=== PATIENT | male | born 1970 | race Caucasian/White ===

== ENCOUNTER 2021-01-02 05:37 | Emergency (ER) | payer OTHER ==
[~2021-01-02] VITALS: Ht 193 cm; Wt 93.0 kg
[~2021-01-02 05:37] MED LIST: OXYACE5T PO; PROM25 PO
[2021-01-02] MEDS ORDERED: IBU600 MG PO (06:05)
== END 2021-01-02 06:17 | disposition home or self-care (01) ==
LOC: ER 05:37
DX: M25.561 Pain in right knee (principal)
CPT/HCPCS: 73564; 99283-25; A9270

== ENCOUNTER → 2021-06-27 | Outpatient (CLI) | payer OTHER ==
[~2021-06-27] MED LIST changes: +IBU600 MG PO
[2021-06-29 10:10] LABS: CHLAMYDIA BY NAA Negative (Negative); GONOCOCCUS BY NAA Negative (Negative); TRICH VAG BY NAA Negative (Negative)
== END ==
LOC: LAB 11:10 → LAB SHORT 11:10
PROVIDERS: Registered Nurse Community Health
DX: Z11.3 Encounter for screening for infections with a predominantly sexual mode of transmission (principal); Z20.2 Contact with and (suspected) exposure to infections with a predominantly sexual mode of transmission
CPT/HCPCS: 87491; 87591; 87661

== ENCOUNTER → 2021-06-27 | Outpatient (CLI) | payer OTHER ==
[2021-06-29 02:07] LABS: HBSAG SCREEN Negative (Negative); HCV ANTIBODY <0.1 (0.0-0.9); HIV SCREEN 4TH GENERATION WRFX Non Reactive (Non Reactive)
== END ==
LOC: LAB 11:15 → LAB SHORT 11:15
PROVIDERS: Registered Nurse Community Health
DX: Z11.3 Encounter for screening for infections with a predominantly sexual mode of transmission (principal); Z20.2 Contact with and (suspected) exposure to infections with a predominantly sexual mode of transmission
CPT/HCPCS: 86592; 86803; 87340; 87389

== ENCOUNTER → 2022-02-17 | Outpatient (CLI) | payer OTHER | END | disposition home or self-care (01) | LOC: LAB 18:08 → LAB SHORT 18:08 | DX: R36.9 Urethral discharge, unspecified (principal) | CPT/HCPCS: 87086 ==

== ENCOUNTER 2022-02-26 13:40 | Emergency (ER) | payer OTHER ==
[~2022-02-26] VITALS: Ht 190.5 cm; Wt 86.2 kg
[2022-02-26] MEDS ORDERED: Avidoxy100 MG PO (13:49)
[2022-02-26 14:19] LABS: BASOPHILS PERCENT AUTO 1 % (0-2); EOSINOPHILS ABSOLUTE AUTO 0.09 K/mm3 (0.00-0.68); EOSINOPHILS PERCENT AUTO 1 % (0-6); Hematocrit 42.8 % (37.0-53.0); Hemoglobin 14.2 g/dL (13.5-17.5); IMMATURE GRAN ABSOLUTE AUTO 0.04 K/mm3 (0.00-0.10); IMMATURE GRAN PERCENT AUTO 1 % (0-1); LYMPHOCYTES ABSOLUTE AUTO 1.62 K/mm3 (0.84-5.20); LYMPHOCYTES PERCENT AUTO 19 % (21-46); MONOCYTES ABSOLUTE AUTO 0.64 K/mm3 (0.16-1.47); MONOCYTES PERCENT AUTO 7 % (4-13); Mean Corpuscular HGB 29.8 pg (26.0-34.0); Mean Corpuscular HGB Conc 33.2 g/dL (31.5-36.5); Mean Corpuscular Volume 90 fL (80-100); Mean Platelet Volume 11.7 fL (9.1-12.4); NEUTROPHILS ABSOLUTE AUTO 6.27 K/mm3 (1.96-9.15); NEUTROPHILS PERCENT AUTO 72 % (41-73); Platelet Count 207 K/mm3 (150-400); RDW Coefficient Variation 13.1 % (11.7-14.2); RDW Standard Deviation 43.4 fL (35.1-46.3); Red Blood Cell Count 4.76 M/mm3 (4.30-5.90); White Blood Cell Count 8.76 K/mm3 (4.00-11.30)
[2022-02-26 14:39] LABS: Albumin/Globulin Ratio 1.2 (0.8-1.8); Bilirubin, Total 0.5 mg/dL (0.1-1.0); Bun/Creatinine Ratio 15.9 (12.0-20.0); Calcium, Blood 8.9 mg/dL (8.5-10.1); Creatinine, Blood 0.82 mg/dL (0.60-1.20); Globulin, Blood 3.2 g/dL (2.2-4.0); Potassium, Blood 4.2 mmol/L (3.5-5.5); Total Protein, Blood 7.2 g/dL (6.4-8.2)
[2022-02-26 14:57] LABS: Source, Urine Clean Catch
[2022-02-26 15:05] LABS: Appearance, Urine Clear (Clear); Bilirubin, Urine Neg (Neg); Blood, Urine Neg (Neg); Glucose Qualitative, Urine Neg (Neg); Ketones, Urine Neg (Neg); Leukocyte Esterase, Urine Neg (Neg); Nitrite, Urine Neg (Neg); Protein, Urine Neg (Neg); Urobilinogen, Urine NORM (Normal)
[2022-02-26 15:11] LABS: Color, Urine Pale Yellow (P-Yellow)
== END 2022-02-26 15:44 | disposition home or self-care (01) ==
LOC: ER 13:40
PROVIDERS: Physician Assistant
DX: R10.9 Unspecified abdominal pain (principal); M54.9 Dorsalgia, unspecified; N39.0 Urinary tract infection, site not specified; Z88.8 Allergy status to other drugs, medicaments and biological substances; Z87.891 Personal history of nicotine dependence; Z79.899 Other long term (current) drug therapy
CPT/HCPCS: 36415; 74176; 80053; 81003; 83690; 85025; J2405; J7030

== ENCOUNTER → 2022-03-15 | Outpatient (CLI) | payer OTHER ==
[~2022-03-15] MED LIST changes: +Avidoxy100 MG PO
[2022-03-15 14:51] LABS: CHOL/HDL RATIO 3.2; Cholesterol 143 mg/dL (50-200); HDL Cholesterol 45 mg/dL (>39); Low Density Lipoprotein Chol 88 mg/dL (0-110); Triglycerides 51 mg/dL (30-160); Very Low Density Lipoprot Chol 10 mg/dL (6-32)
== END | disposition home or self-care (01) ==
LOC: LAB 08:45 → LAB SHORT 08:45
PROVIDERS: Nurse Practitioner
DX: Z12.5 Encounter for screening for malignant neoplasm of prostate (principal); Z13.6 Encounter for screening for cardiovascular disorders
CPT/HCPCS: 80061; G0103

== ENCOUNTER 2024-04-30 07:48 | Day surgery (SDC) | payer OTHER ==
[~2024-04-30] VITALS: Ht 190.5 cm; Wt 89.0 kg
[2024-04-30] VITALS (7 sets, daily range): BP systolic 128–135; BP diastolic 79–99
[~2024-04-30 07:48] MED LIST changes: +LOSA25 PO; +METO25ER PO; +NITR.4SL SL; +Prednisone10 MG PO
[2024-04-30] MEDS ORDERED: NS 250 ML IV ONE (08:01)
[2024-04-30] MEDS ORDERED: Verapamil HCL 2.5 MG/ML 2ML Injection ONE (08:01)
[2024-04-30] MEDS ORDERED: Heparin Sodium 1000 Units/ML 10ML MDV ONE (08:02)
[2024-04-30] MEDS ORDERED: Nitroglycerin 2 MG/20 ML BTL ONE (08:02)
[2024-04-30] MEDS ORDERED: NS 1,000 ML IV ONE ×2 (08:02→08:47)
[2024-04-30] MEDS ORDERED: Crestor40 MG PO (08:06)
[2024-04-30] MEDS ORDERED: Aspir 8181 MG PO (08:06)
[2024-04-30] MEDS ORDERED: Midazolam HCl 1MG / ML 2ML Vial ONE (08:47)
[2024-04-30] MEDS ORDERED: FentaNYL Citrate 50 MCG/ML 2 ML Injection ONE (08:47)
--- NOTE | 2024-04-30 09:30 | NUR ---
Pt back from lab at this time in recliner, TR band to right radial site. 10cc of air in band per report with no oozing or hematoma. pt. vss upon arrival to unit. food tray provided and refrshments offered. call light in reach.
--- NOTE | 2024-04-30 10:00 | NUR ---
Radial site remains unchanged from previous assessments additional food provided per pt. request. vss remain stable.
[2024-04-30] MEDS ORDERED: Imdur30 MG PO (10:10)
--- NOTE | 2024-04-30 10:57 | NUR ---
tr band deflated per protocol. no oozing or swelling from site. pt resting comfortably in recliner. vss remain stable. discharge instructions reviewed in detail. no further questions. pt. prescription called to [facility].
--- NOTE | 2024-04-30 11:10 | NUR ---
PT ABLE TO GET SELF DRESSED WITH OUT DIFFICULTY. IV REMOVED, CATHETER INTACT. PT. TR BAND REMOVED, DIME SIZED BRUISE AT ACCESS SITE, NO OOZING. PT. VSS REMAIN STABLE. BANDAGE PLACED OVER SITE, ARM BOARD IN PLACE FOR DISCHARGE. PT ROOMMATE TO DRIVE PT HOME. ALL BELOGNINGS WITH PT UPON DISCHARGE TAKEN VIA WHEELCHAIR TO EXIT.
== END 2024-04-30 11:30 | disposition home or self-care (01) ==
LOC: MHTC 07:48
DX: R07.89 Other chest pain (principal); R94.39 Abnormal result of other cardiovascular function study; Z82.49 Family history of ischemic heart disease and other diseases of the circulatory system; K51.919 Ulcerative colitis, unspecified with unspecified complications; Z87.891 Personal history of nicotine dependence; Z79.899 Other long term (current) drug therapy
CPT/HCPCS: 76937; 93454; 99152; C1769; C1894; J1644; J2250; J3010; J7030; J7050; Q9967

== ENCOUNTER → 2025-01-08 | Outpatient (CLI) | payer OTHER ==
[~2025-01-08] MED LIST changes: +Aspir 8181 MG PO; +Crestor40 MG PO; +Imdur30 MG PO
[2025-01-12 06:02] LABS: CALPROTECTIN,FECAL 126 ug/g (<=49)
== END ==
LOC: LAB SHORT 14:48 → LAB 14:48 → LAB FUT 01-06 08:20
PROVIDERS: Physician Assistant
DX: K51.011 Ulcerative (chronic) pancolitis with rectal bleeding (principal)
CPT/HCPCS: 83993

== ENCOUNTER → 2025-06-18 | Outpatient (CLI) | payer OTHER ==
[2025-06-18 15:09] LABS: C DIFFICILE DNA NEGATIVE (Negative)
[2025-06-22 16:07] LABS: CALPROTECTIN,FECAL 85 ug/g (<=49)
== END ==
LOC: LAB 12:19 → LAB SHORT 12:19 → LAB FUT 06-15 10:05
PROVIDERS: Student in an Organized Health Care Education/Training Program
DX: K51.011 Ulcerative (chronic) pancolitis with rectal bleeding (principal); R19.7 Diarrhea, unspecified
CPT/HCPCS: 83993; 87015; 87045; 87046; 87205; 87493; 87899